=== PATIENT | female | born 1980 | race Caucasian/White ===

== ENCOUNTER 2021-02-22 18:59 | Emergency (ER) | payer OTHER ==
[2021-02-22 19:10] VITALS: BP 118/77; PULSE 98; TEMP 99; BMI 25.2
[2021-02-22] MEDS ORDERED: CEPHALEXIN MONOHYDRATE 500 MG CAPSULE (UD) PO ONE (19:57)
[2021-02-22] MEDS ORDERED: IBUPROFEN 600 MG TABLET (FP) PO ONE ×2 (19:57→19:59)
[2021-02-22] MEDS ORDERED: CEPHALEXIN MONOHYDRATE 500 MG CAPSULE (UD) ONE (20:00)
== END 2021-02-22 20:23 | disposition home or self-care (01) ==
LOC: JERFT 18:59
DX: H60.12 Cellulitis of left external ear (principal)
CPT/HCPCS: 99283-25